=== PATIENT | female | born 1935 | race Caucasian/White ===

== ENCOUNTER 2023-01-31 10:10 | Observation (INO) ==
[~2023-01-31 10:10] MED LIST: Buffered Lidocaine 1% SYRIN 1 ml INTRADERM ONE; Lactated Ringers 1000 ml BAG 1,000 ML IV SCH; Morphine 4 MG/ML VIAL (1 ml) IV PRN; Naloxone 0.4 mg VIAL 0.4 mg/ml 1 ml VIAL IV PRN; Prochlorperazine 5 mg/ml 2 ml VIAL (10 mg) IV PRN; fentaNYL 100 mcg/2 ml 50 MCG/ML VIAL IV PRN
[2023-01-31] MEDS ORDERED: ceFAZolin 2 GM in NS PREMIX 2 GM/100 ML BAG IVPB ONE (10:35)
[2023-01-31] MEDS ORDERED: Buffered Lidocaine 1% SYRIN 1 ml ONE (10:57)
[2023-01-31 11:14] LABS: Rapid COVID-19 Molecular Undetected (Undetected)
[2023-01-31] MEDS ORDERED: hydrALAZINE 20 mg/ml 1 ML Vial IV IV SLOW PU ONE ×2 (11:44)
[2023-01-31] MEDS ORDERED: Metoprolol Tartrate 5 mg VIAL 5 ml VIAL (1 mg/ml) IV ONE (11:46)
[2023-01-31] MEDS ORDERED: hydrALAZINE 20 mg/ml 1 ML Vial IV ONE ×2 (11:49→12:34)
[2023-01-31] MEDS ORDERED: Metoprolol Tartrate 5 mg VIAL 5 ml VIAL (1 mg/ml) ONE ×2 (11:50→12:34)
[2023-01-31] MEDS ORDERED: fentaNYL 100 mcg/2 ml 50 MCG/ML VIAL ONE (12:04)
[2023-01-31] MEDS ORDERED: Lidocaine 2% PF 5 ML VIAL ONE (12:05)
[2023-01-31] MEDS ORDERED: Ondansetron 4 mg VIAL 2 MG/ML 2 ml VIAL ONE (12:05)
[2023-01-31] MEDS ORDERED: Dexamethasone IV 4 MG/ML VIAL 1 ml VIAL ONE (12:05)
[2023-01-31] MEDS ORDERED: Propofol 10 MG/ML 20 ML BTL ONE (12:05)
[2023-01-31] MEDS ORDERED: Phenylephrine IV 10 MG/ML 1 ml VIAL ONE (12:05)
[2023-01-31] MEDS ORDERED: Bupivacaine 0.5% PF 10 ML SDV VIAL INJ ONE (12:06)
[2023-01-31] MEDS ORDERED: ROPIVACAINE 5 MG/ML 30 ML BTL (0.5%) ONE (12:07)
[2023-01-31] MEDS ORDERED: Midazolam 2 mg/2 ml VIAL 1 mg/ml 2 ml VIAL (2 mg) ONE (12:22)
[2023-01-31] MEDS ORDERED: Sterile Water for Inj 10 ML ONE (13:48)
[2023-01-31] MEDS ORDERED: Acetaminophen IV 1 GM/100ML 1,000 MG/100 ML BAG IV ONE (13:56)
[2023-01-31] MEDS ORDERED: Ondansetron ODT 4 mg TAB 4 MG TAB PO PRN (14:24)
[2023-01-31] MEDS ORDERED: Magnesium Hydroxide LIQ 30 ML UDC PO PRN (14:24)
[2023-01-31] MEDS ORDERED: Ondansetron 4 mg VIAL 2 MG/ML 2 ml VIAL IV PRN (14:24)
[2023-01-31] MEDS ORDERED: Lactulose 30 ml UDC PO PRN (14:24)
[2023-01-31] MEDS ORDERED: Morphine 2 MG/ML SYRINGE IV PRN (14:24)
[2023-01-31] MEDS: Lactated Ringers 1000 ml BAG 1,000 ML IV SCH (17:30)
[2023-01-31] MEDS: ceFAZolin 1 GM ADVAN 1 GM in NS 0.9% 50 ML 50 ML IVPB SCH (21:14)
[2023-01-31] MEDS: Magnesium Hydroxide LIQ 30 ML UDC PO SCH (21:30)
[2023-02-01] MEDS: Lactated Ringers 1000 ml BAG 1,000 ML IV SCH (03:47)
[2023-02-01] MEDS: ceFAZolin 1 GM ADVAN 1 GM in NS 0.9% 50 ML 50 ML IVPB SCH ×2 (04:36→11:56)
[2023-02-01 06:33] LABS: Hematocrit 35.4 % (35-45); Mean Platelet Volume 7.9 fL (7.5-11.2); Platelet Count 273 10^3/uL (150-450)
[2023-02-01 06:51] LABS: Calcium 8.8 mg/dL (8.6-10.3); Creatinine, Serum 0.86 mg/dL (0.51-0.95); Potassium 3.9 mmol/L (3.5-5.0); eGFR CKD-EPI 66.2 (>60)
[2023-02-01] MEDS ORDERED: Vitamin THERAPEUTIC TAB PO SCH (09:00)
[2023-02-01] MEDS: Magnesium Hydroxide LIQ 30 ML UDC PO SCH (09:19)
[2023-02-01 09:53] LABS: Rapid COVID-19 Molecular Undetected (Undetected)
== END 2023-02-01 12:50 ==
LOC: AA 10:10 → INTOOBSV 10:10 → SSU 17:27
PROVIDERS: ADMIT Orthopaedic Surgery Adult Reconstructive Orthopaedic Surgery; ATTEND Orthopaedic Surgery Adult Reconstructive Orthopaedic Surgery